=== PATIENT | female | born 1985 | race Caucasian/White ===

== ENCOUNTER 2019-10-06 16:33 | Inpatient (IN) | payer OTHER ==
[2019-10-06] MEDS ORDERED: Buffered Lidocaine 1% SYRIN* 1 ML/SYRINGE INTRADERM ONE (17:18)
[2019-10-06] MEDS ORDERED: Lactated Ringers 1000 ML Bag* 1,000 ML IV ONE ×2 (17:18→18:29)
[2019-10-06] MEDS ORDERED: OBEPIDURAL* 250 ML EPIDURAL ONE (17:24)
--- NOTE | 2019-10-06 17:29 | HP ---
General Information - Reason for Visit Pt had SROM @16:00 followed by contractions now q2-3min. She had a large gush of fluid that soaked her pants and puddled on the ground. - General Information Maternal Age: 33 Grav: 2 Para: 1 Estimated Due Date: 10/07/19 Determined By: Early Ultrasound Gestational Age in Weeks/Days: 39.6 Maternal Blood Type and Rh: A Positive - Results this Serology/RPR Result: Non-Reactive Rubella Result: Immune HBsAg Result: Negative HIV Result: Negative GBS Culture Result: Negative Past Medical History Delivery History: Hx C/Section - for IUGR/velamentous cord insertion @35wks Pertinent Past Medical History: See Records - significant depression/ anxiety/ptsd from prior labor, hyperemesis Pertinent Past Surgical History: See Records Pertinent Family History: Non-Contributory - Antepartal Records Antepartal Records: Reviewed, Complicated by: - Prior CS, anxiety, prior IUGR baby, hyperemesis Review of Systems Constitutional: Uncomfortable CV Complaint: No Respiratory: Shortness of Breath: No Gastrointestinal: Nausea, Vomiting - normal for her during Genitourinary: Leaking Fluid, No Bleeding Musculoskeletal: Contractions Movement: Normal Exam Allergies/Adverse Reactions: Allergies amoxicillin Allergy (Verified 10/06/19 17:40) Hives Sulfa (Sulfonamide Antibiotics) Allergy (Verified 10/06/19 17:40) Hives - Exam Breast: Breast Exam Deferred Extremities: No Edema Heart: Normal Rhythm/Heart Sounds HEENT: No Significant Findings - Abdominal Exam Abdomen Exam: Non-Tender - Ultrasound/Biophysical Profile Ultrasound Status: Not Done Targeted Exam Findings Cervical Exam: 4cm, 5cm Effacement: 90% Station: -1 Presenting Part: Vertex Membrane Status: SROM Amniotic Fluid Evaluation: Gross Rupture EFM Findings - External Monitor Findings Baseline Heart Rate: 150 External Monitor Findings: Accelerations Present, No Pattern of Variable or Late Decelerations, Variability Moderate, Baseline Stable Contractions: Regular - q2min Assessment/Plan - Assessment @39.6wks in active labor with SROM, prior CS for IUGR (never really labored), desires TOLAC (risks discussed and consent signed) - Obstetrical Risk Factors Obstetrical Risk Factors: Previous C/Section in Labor, Psychiatric Issues - severe depression/anxiety/ptsd - Plan Plan: Observe, Admit - Anticipate Vaginal Delivery
[2019-10-06 17:45] LABS: ABS Lymphocytes 1.8 10^3/ul (1.0-4.8); ABS Monocytes 0.7 10^3/ul (0-0.8); ABS Neutrophils 10.2 10^3/ul (1.5-7.7); Eosinophil % 0.3 %; Hematocrit 39 % (35-47); Hemoglobin 13.7 g/dL (12.0-16.0); Mean Corpuscular HGB Conc 35 g/dL (31-36); Mean Corpuscular Hemoglobin 33 pg (27-31); Mean Corpuscular Volume 94 fL (80-97); Mean Platelet Volume 9.7 fL (7.4-10.4); Platelet Count 222 10^3/uL (150-450); Red Blood Count 4.21 10^6 /uL (3.70-4.87); Red Cell Distribution Width 14 % (10-15); White Blood Count 12.7 10^3/uL (3.5-10.8)
[2019-10-06 18:01] LABS: Urine Benzodiazepine Screen None Detected (None Detect); Urine Opiates Screen None Detected (None Detect)
[2019-10-06] MEDS: Lactated Ringers 1000 ML Bag* 1,000 ML IV SCH ×2 (18:24→21:15)
[2019-10-06] MEDS ORDERED: Sodium Citrate/Citric Acid* 15 ML UDC PO PRN (18:29)
[2019-10-06] MEDS ORDERED: Phenylephrine 40 MCG/ML SYRINGE IV PUSH PRN ×2 (18:29)
[2019-10-06] MEDS ORDERED: EPHEDrine (Pressors)* 50 MG/ML VIAL IV PUSH PRN ×2 (18:29)
[2019-10-06] MEDS ORDERED: Famotidine TAB* 20 MG PO PRN (18:29)
[2019-10-06] MEDS ORDERED: OBEPIDURAL* 250 ML EPIDURAL SCH (19:00)
[2019-10-06] MEDS ORDERED: Lactated Ringers 1000 ML Bag* 1,000 ML IV SCH (19:00)
[2019-10-06] MEDS ORDERED: Oxytocin in LR* 20 UNITS/1,000 ML BAG IVPB ONE (23:50)
[2019-10-07] MEDS ORDERED: Acetaminophen TAB* 325 MG PO PRN (00:10)
[2019-10-07] MEDS ORDERED: Witch Hazel PAD* JAR TOPICAL PRN (00:10)
[2019-10-07] MEDS ORDERED: Dibucaine 1% 28.35 GM TUBE PR PRN (00:10)
--- NOTE | 2019-10-07 00:20 | PROCNOTE ---
[facility] OB: Delivery Note - Delivery A Date of : 10/06/19 Time of : 23:36 [place] Sex: Female Weight at : 8 lb 3 oz Score 1 Minute: 7 Score 5 Minutes: 8 Gestational Age in Weeks and Days at Delivery: 39 Weeks and 6 Days Delivery Method: Spontaneous Vaginal Labor: Spontaneous Did Patient attempt ?: Yes, Successful Amniotic Fluid: Clear Estimated Blood Loss: 300 Anesthesia/Analgesia: CEI for Labor Delivered By: Yumiko Rudd - Nursery Level of Nursery: Regular/Bedside - Perineum Perineal Injury: Perineal Laceration, 2nd Degree - Events Delivery Events of Note: Pitocin Only After Delivery, Post- Bleeding - Meds Given - Additional Delivery Notes Additional Delivery Notes: Pt presented with SROM followed quickly by progression into active labor. She received an epidural and progressed to fully dilated. 3.5hrs of active labor. She then pushed for 2hrs 20min to deliver the head in MARTY position followed quickly by the shoulders and the rest of the body. The baby was placed on mom' s abdomen and after >1min the cord was clamped x2 and cut by dad. Cord blood collected. The placenta then delivered with gentle cord traction and fundal massage and appeared intact. A 2nd degree laceration was repaired in the usual fashion with 3-0 vicryl rapide. Mom had 2 small gushes of blood which resolved quickly with fundal massage. Fundus was found to be firm and there was good hemostasis. Mom and baby stable at time of note.
[2019-10-07] MEDS ORDERED: Lactated Ringers 1000 ML Bag* 1,000 ML IV SCH (01:00)
[2019-10-07 06:22] LABS: ABS Basophils 0.1 10^3/ul (0-0.2); ABS Lymphocytes 1.1 10^3/ul (1.0-4.8); ABS Monocytes 0.9 10^3/ul (0-0.8); ABS Neutrophils 15.6 10^3/ul (1.5-7.7); Hematocrit 29 % (35-47); Hemoglobin 10.2 g/dL (12.0-16.0); Lymphocyte % 6.1 %; Mean Corpuscular HGB Conc 35 g/dL (31-36); Mean Corpuscular Hemoglobin 33 pg (27-31); Mean Corpuscular Volume 94 fL (80-97); Mean Platelet Volume 9.4 fL (7.4-10.4); Platelet Count 165 10^3/uL (150-450); Red Blood Count 3.07 10^6 /uL (3.70-4.87); Red Cell Distribution Width 14 % (10-15); White Blood Count 17.6 10^3/uL (3.5-10.8)
[2019-10-07] MEDS: Ibuprofen TAB* 600 MG PO PRN ×3 (07:44→21:57)
[2019-10-07] MEDS: Docusate CAP* 100 MG PO SCH ×3 (07:44→20:56)
[2019-10-07] MEDS ORDERED: Ferrous Sulfate TAB* 325 MG ONE (10:22)
[2019-10-07] MEDS ORDERED: Ferrous Gluconate TAB* 324 MG TAB ONE ×2 (10:23→20:50)
[2019-10-07] MEDS: Ferrous Gluconate TAB* 324 MG TAB PO SCH (10:26)
[2019-10-07] MEDS ORDERED: Sertraline* 25 MG TAB PO SCH (21:00)
[2019-10-08] MEDS: Ibuprofen TAB* 600 MG PO PRN (05:46)
[2019-10-08 08:07] VITALS: BP 115/71
[2019-10-08] MEDS: Docusate CAP* 100 MG PO SCH ×2 (09:00→10:48)
[2019-10-08] MEDS: Ferrous Gluconate TAB* 324 MG TAB PO SCH ×2 (09:00→10:48)
== END 2019-10-08 12:15 | disposition home or self-care (01) | DRG 806 ==
LOC: MCHOBOUT 16:33 → MCHOB 17:19
PROVIDERS: ADMIT Obstetrics & Gynecology; ATTEND Obstetrics & Gynecology
PROC: 10E0XZZ Delivery of Products of Conception, External Approach (ICD-10-PCS; principal; 2019-10-06)
PROC: 0KQM0ZZ Repair Perineum Muscle, Open Approach (ICD-10-PCS; 2019-10-06)
PROC: 4A1HXCZ Monitoring of Products of Conception, Cardiac Rate, External Approach (ICD-10-PCS; 2019-10-06)
DX: O34.211 Maternal care for low transverse scar from previous cesarean delivery (principal); O72.1 Other immediate postpartum hemorrhage; Z37.0 Single live birth; D62 Acute posthemorrhagic anemia; O99.344 Other mental disorders complicating childbirth; F41.9 Anxiety disorder, unspecified; O70.1 Second degree perineal laceration during delivery; O90.81 Anemia of the puerperium; O99.214 Obesity complicating childbirth; F32.9 Major depressive disorder, single episode, unspecified; F43.10 Post-traumatic stress disorder, unspecified; O21.0 Mild hyperemesis gravidarum; Z88.0 Allergy status to penicillin; Z88.2 Allergy status to sulfonamides; Z3A.39 39 weeks gestation of pregnancy
CPT/HCPCS: 36415; 80307; 85025; 86850; 86900; 86901; A9270-GY; G0480